=== PATIENT | male | born 1995 | race American Indian/Alaskan Native ===

== ENCOUNTER 2021-05-22 22:26 | Emergency (ER) | payer SELFPAY ==
[2021-05-22] MEDS ORDERED: HALOPERIDOL LACTATE 5 MG/1 ML INJ IM ONE (23:33)
[2021-05-22] MEDS ORDERED: PANTOPRAZOLE 40 MG INJ IV ONE (23:33)
[2021-05-22] MEDS ORDERED: DEXTROSE 50% IN WATER (25GM) 50 ML SYRINGE IV PRN (23:33)
[2021-05-22] MEDS ORDERED: LORazepam 2 MG/ML VIAL IV PRN ×3 (23:33)
[2021-05-22] MEDS ORDERED: THIAMINE 100 MG, FOLIC ACID 1 MG, MULTIPLE VITAMIN INJ, ADULT 10 ML in SODIUM CHLORIDE ... IV ONE (23:33)
--- NOTE | 2021-05-22 23:34 | Emergency Department Report ---
ED General Adult HPI - General Chief complaint: Alcohol Stated complaint: I am having alcohol withdrawal PUI?: No Time Seen by Provider: 05/22/21 23:27 Source: patient, EMS ( EMS documentation not available at time of chart dictation ), RN notes reviewed Mode of arrival: Stretcher Limitations: No Limitations - History of Present Illness Initial comments: The patient was evaluated in the emergency department for symptoms described in the history of present illness. He/she was evaluated in the context of the global COVID-19 pandemic, which necessitated consideration that the patient might be at risk for infection with the virus that causes COVID-19. Institutional protocols and algorithms that pertain to the evaluation of patients at risk for COVID-19 are in a state of rapid change based on information released by regulatory bodies including the CDC and federal and state organizations. These policies and algorithms were followed during the patient's care in the emergency department. Please note that these policies, procedures and recommendations changed on a rapid basis. The patient is a 25-year-old gentleman. The patient is not known to myself previously. The patient is brought to the hospital today by emergency medical services. The patient presents today with a complaint of alcohol withdrawal. The patient states that he drinks 6-8 shots of tequila most days. His last alcoholic beverage was earlier on today. He states that he feels anxious, shaky, and jittery. He also states that he is nauseous. In the next sentence, he is asking to drink Gatorade. He denies headache, neck pain, chest pain. He reports that he is nauseous. He is not homicidal suicidal, and he is not experiencing hallucinations. He has abdominal cramping. He denies testicular pain. He denies Covid symptoms. -: Gradual, hour(s) Severity scale (0 -10): 9 Consistency: intermittent Improves with: medication Worsens with: none - Related Data Previous Rx's Medication Instructions Recorded Last Taken Type Multivitamin with Folic Acid [[facility] 400 mcg PO QDAY #30 tablet 05/23/21 Unknown Rx One Daily Essential Tablet] Ondansetron [Zofran Odt] 4 mg PO Q8HR PRN #20 tab.rapdis 05/23/21 Unknown Rx chlordiazePOXIDE [Librium] 25 mg PO Q6H PRN #25 capsule 05/23/21 Unknown Rx Allergies Allergy/AdvReac Type Severity Reaction Status Date / Time No Known Allergies Allergy Verified 05/22/21 23:35 ED Review of Systems ROS: Stated complaint: ALCOHOL WITHDRAWAL Other details as noted in HPI Constitutional: denies: fever Eyes: denies: eye discharge ENT: denies: epistaxis Respiratory: denies: cough Cardiovascular: denies: chest pain Gastrointestinal: nausea, vomiting. denies: diarrhea Genitourinary: denies: testicular pain Neurological: weakness Psychiatric: anxiety. denies: auditory hallucinations, visual hallucinations, homicidal thoughts, suicidal thoughts ED Past Medical Hx - Past Medical History Previous Medical History?: No - Surgical History Past Surgical History?: No - Medications Home Medications: Home Medications Medication Instructions Recorded Confirmed Last Taken Type Multivitamin with Folic Acid [[facility] 400 mcg PO QDAY #30 tablet 05/23/21 Unknown Rx One Daily Essential Tablet] Ondansetron [Zofran Odt] 4 mg PO Q8HR PRN #20 tab.rapdis 05/23/21 Unknown Rx chlordiazePOXIDE [Librium] 25 mg PO Q6H PRN #25 capsule 05/23/21 Unknown Rx ED Physical Exam - General Limitations: No Limitations General appearance: alert, anxious - Head Head exam: Present: atraumatic, normocephalic - Eye Eye exam: Present: normal appearance, EOMI. Absent: nystagmus - ENT ENT exam: Present: normal exam, normal orophraynx, mucous membranes moist, normal external ear exam - Neck Neck exam: Present: normal inspection, full ROM. Absent: tenderness, meningismus - Respiratory Respiratory exam: Present: normal lung sounds bilaterally. Absent: respiratory distress, wheezes, rales, rhonchi, stridor, decreased breath sounds - Cardiovascular Cardiovascular Exam: Present: regular rate, normal rhythm, normal heart sounds. Absent: bradycardia, tachycardia, irregular rhythm, systolic murmur, diastolic murmur, rubs, gallop - GI/Abdominal GI/Abdominal exam: Present: soft. Absent: distended, tenderness, guarding, rebound, rigid, pulsatile mass - Rectal Rectal exam: Present: deferred - Extremities Exam Extremities exam: Present: normal inspection, full ROM, other (2+ pulses noted in the bilateral upper and lower extremities. There is no palpable cord. negative Homans sign. Muscular compartments are soft. The pelvis is stable.). Absent: pedal edema, calf tenderness - Back Exam Back exam: Present: normal inspection, full ROM. Absent: tenderness, CVA tenderness (R), CVA tenderness (L), paraspinal tenderness, vertebral tenderness - Neurological Exam Neurological exam: Present: alert, oriented X3, other (No facial droop. Tongue midline. Extraocular movements intact bilaterally. Facial sensation intact to light touch in V1, V2, V3 distribution bilaterally. 5 and a 5 strength in 4 extremities. Sensation intact to light touch in 4 extremities.). Absent: motor sensory deficit - Psychiatric Psychiatric exam: Present: anxious. Absent: flat affect, manic, homicidal ideation, suicidal ideation - Skin Skin exam: Present: warm, dry, intact, normal color. Absent: rash ED Course Vital Signs 05/22/21 05/23/21 22:40 07:21 Temperature 97.8 F 98.7 F Pulse Rate 91 H 60 Respiratory 18 Rate Blood Pressure 133/82 120/70 [Left] O2 Sat by Pulse 97 Oximetry ED Medical Decision Making - Lab Data Result diagrams: 05/22/21 23:51 05/22/21 23:51 Vital Signs 05/22/21 22:40 Temperature 97.8 F Pulse Rate 91 H Respiratory 18 Rate Blood Pressure 133/82 [Left] O2 Sat by Pulse 97 Oximetry Lab Results 05/22/21 05/22/21 05/22/21 Range/Units 23:51 23:51 23:51 WBC 12.8 H (4.5-11.0) K/mm3 RBC 4.68 (3.65-5.03) M/mm3 Hgb 15.2 (11.8-15.2) gm/dl Hct 42.0 (35.5-45.6) % MCV 90 (84-94) fl MCH 32 (28-32) pg MCHC 36 H (32-34) % RDW 12.6 L (13.2-15.2) % Plt Count 214 (140-440) K/mm3 Lymph % (Auto) 7.1 L (13.4-35.0) % Cole % (Auto) 10.3 H (0.0-7.3) % Eos % (Auto) 0.0 (0.0-4.3) % Baso % (Auto) 0.3 (0.0-1.8) % Lymph # (Auto) 0.9 L (1.2-5.4) K/mm3 Cole # (Auto) 1.3 H (0.0-0.8) K/mm3 Eos # (Auto) 0.0 (0.0-0.4) K/mm3 Baso # (Auto) 0.0 (0.0-0.1) K/mm3 Seg Neutrophils % 82.3 H (40.0-70.0) % Seg Neutrophils # 10.5 H (1.8-7.7) K/mm3 Sodium 141 (137-145) mmol/L Potassium 4.2 (3.6-5.0) mmol/L Chloride 105.8 (98-107) mmol/L Carbon Dioxide 20 L (22-30) mmol/L Anion Gap 19 mmol/L BUN 11 (9-20) mg/dL Creatinine 1.1 (0.8-1.3) mg/dL Estimated GFR > 60 ml/min BUN/Creatinine Ratio 10 % Glucose 109 H (75-100) mg/dL Calcium 9.7 (8.4-10.2) mg/dL Total Bilirubin 0.90 (0.1-1.2) mg/dL AST 22 (5-40) units/L ALT 14 (7-56) units/L Alkaline Phosphatase 64 (35-129) units/L Total Protein 7.8 (6.3-8.2) g/dL Albumin 4.7 (3.9-5) g/dL Albumin/Globulin Ratio 1.5 % Salicylates < 0.3 L (2.8-20.0) mg/dL Acetaminophen (10.0-30.0) ug/mL Plasma/Serum Alcohol (0-0.07) % 05/22/21 05/22/21 Range/Units 23:51 23:51 WBC (4.5-11.0) K/mm3 RBC (3.65-5.03) M/mm3 Hgb (11.8-15.2) gm/dl Hct (35.5-45.6) % MCV (84-94) fl MCH (28-32) pg MCHC (32-34) % RDW (13.2-15.2) % Plt Count (140-440) K/mm3 Lymph % (Auto) (13.4-35.0) % Cole % (Auto) (0.0-7.3) % Eos % (Auto) (0.0-4.3) % Baso % (Auto) (0.0-1.8) % Lymph # (Auto) (1.2-5.4) K/mm3 Cole # (Auto) (0.0-0.8) K/mm3 Eos # (Auto) (0.0-0.4) K/mm3 Baso # (Auto) (0.0-0.1) K/mm3 Seg Neutrophils % (40.0-70.0) % Seg Neutrophils # (1.8-7.7) K/mm3 Sodium (137-145) mmol/L Potassium (3.6-5.0) mmol/L Chloride (98-107) mmol/L Carbon Dioxide (22-30) mmol/L Anion Gap mmol/L BUN (9-20) mg/dL Creatinine (0.8-1.3) mg/dL Estimated GFR ml/min BUN/Creatinine Ratio % Glucose (75-100) mg/dL Calcium (8.4-10.2) mg/dL Total Bilirubin (0.1-1.2) mg/dL AST (5-40) units/L ALT (7-56) units/L Alkaline Phosphatase (35-129) units/L Total Protein (6.3-8.2) g/dL Albumin (3.9-5) g/dL Albumin/Globulin Ratio % Salicylates (2.8-20.0) mg/dL Acetaminophen 5.0 L (10.0-30.0) ug/mL Plasma/Serum Alcohol < 0.01 (0-0.07) % - EKG Data -: EKG Interpreted by Ut EKG shows normal: sinus rhythm Rate: normal - EKG Data When compared to previous EKG there are: previous EKG unavailable 05/23/21 01:00 The patient's EKG is interpreted at 23: 39 Sinus rhythm, 76 bpm. Normal axis, normal intervals. Nonspecific T wave abnormality inferiorly. Q waves noted in 1 and aVL. Borderline high left ventricular voltage. Abnormal EKG. Not a STEMI. There is no prior for comparison. - Medical Decision Making Differential diagnosis, including not limited to: Anxiety, alcohol dependence, conversion disorder, alcohol withdrawal, dehydration, electrolyte derangement, encounter for behavioral health screening examination, encounter for medical screening examination Assessment and plan: 25-year-old gentleman, who is clinically sober, with a GCS of 15, who is not homicidal, not suicidal, who does not meet criteria for 1013 hold, who presents to the ER today with a complaint of alcohol withdrawal. His articulated complaint is inconsistent with his history and presentation. As I walked to this patient's room to examine him, he was sitting comfortably in his stretcher, in no acute distress, without shaking or tremors. As I entered the room and introduced myself to the patient, he began to have intermittent diffuse tremors, which would wax and wane. I did not witness any nausea and vomiting. In addition, he did not have tongue fasciculations. His presentation in my pain is not consistent with acute alcohol withdrawal. He does appear to be significantly anxious. He is therefore medicated with haloperidol. This resolved his symptoms. On repeat evaluation, he is sleeping comfortably in his stretcher, with no active vomiting. His laboratory studies are unremarkable, and do not require emergent intervention. This patient does not meet criteria for 1013 hold. He does not appear to have an emergent medical condition present. He does not appear to have an emergent psychiatric condition present. He may be discharged when he wakes up from his sleep. Critical care attestation.: If time is entered above; I have spent that time in minutes in the direct care of this critically ill patient, excluding procedure time. ED Disposition Clinical Impression: Encounter for medical screening examination, Encounter for behavioral health screening, Alcohol use Disposition: 01 HOME / SELF CARE / HOMELESS Is pt being admited?: No Does the pt Need Aspirin: No Condition: Good Additional Instructions: Patient was not found to have an emergent medical psychiatric condition present today. The patient's presentation today is unlikely to be consistent with acute alcohol withdrawal. Nevertheless, recommend that patient discontinue alcohol consumption. Recommend that patient to eat 4-5 meals a day, take a multivitamin on a daily basis, minimize/avoid consumption of Motrin, ibuprofen, Naprosyn, Aleve. Recommend that patient avoid consumption of tobacco, marijuana, and smoke products. Please take the multivitamin as directed. Please take the Librium as needed for sensation of alcohol withdrawal. Please take the nausea medication as needed for sensation of nausea. Recommend the patient not drive or operate motor vehicles, until cleared to do so by a primary medical physician. Recommend the patient follow-up with an outpatient primary care doctor or health department within the next 2 weeks for repeat checkup and evaluation. Please return to the emergency room right away with new pain, worsened pain, migration of pain, projectile vomiting, change in mental status, confusion, inability tolerate liquid feeds, new, worsened or different symptoms not present on the initial emergency room evaluation. Prescriptions: Multivitamin with Folic Acid [[facility]vs One Daily Essential Tablet] 400 mcg PO QDAY #30 tablet chlordiazePOXIDE [Librium] 25 mg PO Q6H PRN #25 capsule PRN Reason: Alcohol Withdrawal Ondansetron [Zofran Odt] 4 mg PO Q8HR PRN #20 tab.rapdis PRN Reason: Nausea Referrals: PRIMARY CARE, [Primary Care Provider] - 3-5 Days [facility] [Provider Group] - 3-5 Days [facility] [Outside] - 3-5 Days [facility] [Outside] - 3-5 Days
[2021-05-23 00:17] LABS: Basophils % (Auto) 0.3 % (0.0-1.8); Lymphocytes # (Auto) 0.9 K/mm3 (1.2-5.4); Lymphocytes % (Auto) 7.1 % (13.4-35.0); Mean Corpuscular HGB Conc 36 % (32-34); Mean Corpuscular Volume 90 fl (84-94); Monocytes # (Auto) 1.3 K/mm3 (0.0-0.8); Monocytes % (Auto) 10.3 % (0.0-7.3); Platelet Count 214 K/mm3 (140-440); Red Blood Count 4.68 M/mm3 (3.65-5.03); Red Cell Distribution Width 12.6 % (13.2-15.2)
[2021-05-23 00:28] LABS: Alanine Aminotransferase 14 units/L (7-56); Albumin 4.7 g/dL (3.9-5); BUN/Creatinine Ratio 10; Blood Urea Nitrogen 11 mg/dL (9-20); Calcium 9.7 mg/dL (8.4-10.2); Hemolysis Index 11
[2021-05-23 00:40] LABS: Hemoglobin 15.2 gm/dl (11.8-15.2)
[2021-05-23 07:24] VITALS: BP 120/70
--- NOTE | 2021-05-31 10:16 | Electrocardiograph Report ---
[facility] Test Date: 2021-05-22 Test Time: 23:39:37 Pat Name: SARAHI EWING Department: Room: Gender: M Senior Merchandiser: NOEMI PAYTONB: 1995 Requested By: CHANCE TURPIN Order Number: [id number] Reading MD: Anna Zapien Measurements Intervals [place] Rate: 76 P: 60 SC: 167 QRS: 49 QRSD: 90 T: -12 QT: 385 QTc: 433 Interpretive Statements Sinus rhythm No previous ECG available for comparison Electronically Signed On 05-31-2021 10:16:25 EDT by Anna Zapien
== END 2021-05-23 07:21 | disposition home or self-care (01) ==
LOC: ED 22:26
DX: F10.939 Alcohol use, unspecified with withdrawal, unspecified (principal); R11.2 Nausea with vomiting, unspecified; F41.9 Anxiety disorder, unspecified; Z13.30 Encounter for screening examination for mental health and behavioral disorders, unspecified; Z72.89 Other problems related to lifestyle; Z79.899 Other long term (current) drug therapy; Y90.9 Presence of alcohol in blood, level not specified
CPT/HCPCS: 36415; 80053; 85025; 93005; 96365; 96366; 96372; 96375; 99284; C9113; J1630; J2060; J3411; J7030; 80320; G0480